=== PATIENT | female | born 1955 | race Caucasian/White ===

== ENCOUNTER 2024-05-30 08:37 | Outpatient (RCR) | payer MEDICARE, BC, SELFPAY | END 2024-09-27 23:59 | disposition home or self-care (01) | PROVIDERS: PCP Family Medicine; Visit Provider Orthopaedic Surgery | DX: M17.12 Unilateral primary osteoarthritis, left knee (principal); Z96.652 Presence of left artificial knee joint; Z51.89 Encounter for other specified aftercare | CPT/HCPCS: 97110; 97161 ==

== ENCOUNTER 2024-06-02 06:08 | Day surgery (SDC) | payer MEDICARE, BC, SELFPAY ==
[2024-06-02] VITALS (23 sets, daily range): BP systolic 70–135; BP diastolic 49–92; PULSE 61–94; RESP 16; TEMP 36.4–36.8; O2SAT 88–100; BMI 25.8
[2024-06-02] MEDS: ACETAMINOPHEN 500 MG TABLET 1000 MG PO (06:25)
[2024-06-02] MEDS: OXYCODONE (CR) 10 MG TAB.ER.12H PO (06:25)
[2024-06-02] MEDS: CELECOXIB 200 MG CAPSULE PO (06:25)
[2024-06-02] MEDS: SODIUM CHLORIDE 0.9 % (FLUSH) 10 ML SYRINGE IVF (06:42)
[2024-06-02] MEDS: MIDAZOLAM HCL 1 MG/ML inj IVP (07:18)
[2024-06-02] MEDS: fentaNYL 100 MCG/2 ML inj IVP (07:18)
[2024-06-02] MEDS: 0.9 % SODIUM CHLORIDE 500 ML 500 ML 100 ML IV ×4 (07:28→10:38)
[2024-06-02] MEDS: CEFAZOLIN 2 GM INJ IVP (07:48)
[2024-06-02] MEDS: TRANEXAMIC ACID 100 MG/ML INJ 1000 MG IV (07:48)
--- NOTE | 2024-06-02 08:13 | P.NB_ITS ---
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 Images saved: Yes Medications given in 5ml increments after negative aspiration: Marcaine %: 0.25 mL: 15 Needle gauge: 20 Precedex (mcg): 25 Patient tolerated procedure well: Yes Block Charges Block Charge (with Pro Fee): Femoral Nerve Use of Ultrasound Machine for Block: Yes- US Guidance/pain block
--- NOTE | 2024-06-02 08:13 | P.NB_ITS ---
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 Images saved: Yes Medications given in 5ml increments after negative aspiration: Marcaine %: 0.25 mL: 9 Needle gauge: 25 Patient tolerated procedure well: Yes Block Charges Block Charge (with Pro Fee): Genicular Nerve Block
--- NOTE | 2024-06-02 08:13 | W.ANESCHARGE ---
Anesthesia Charges Start Date/Time Anesthesia Start Date: 06/02/24 Anesthesia Start Time: 07:26 Stop Date/Time Anesthesia Stop Date: 06/02/24 Anesthesia Stop Time: 09:15 Summary Extremes of Age - Over 70 or under 1: MDA
--- NOTE | 2024-06-02 08:44 | CRLHL7_ITS ---
For Patients: As a result of the Cures Act, medical imaging exams and procedure reports are released immediately into your electronic medical record. You may view this report before your referring provider. If you have questions, please contact your health care provider. Indication: Post left TKA Technique: Two views left knee Findings/Impression: Hardware from a left total knee arthroplasty is in satisfactory position. Bone alignment is normal. No sign of acute fracture. Postop changes are within normal limits. Dictated by Adrian Luther MD @ 06/02/2024 10:25:41 AM (Electronically Signed)
--- NOTE | 2024-06-02 08:46 | P.ORPRC_ITS ---
Procedure Note Date of procedure: 06/02/24 Procedure: PREOPERATIVE DIAGNOSIS: Left knee osteoarthritis POSTOPERATIVE DIAGNOSIS: Left knee osteoarthritis NAME OF OPERATION: Left total knee arthroplasty SURGEON: Jonny Bradley MD CAR HOPPER: SUSAN Louie ANESTHESIA: Spinal ESTIMATED BLOOD LOSS: 0 mL COMPLICATIONS: None SPECIMENS: None DRAINS: None PREOPERATIVE ANTIBIOTICS: Ancef 1 g IMPLANTS: 1. J&J Attune # 5 posterior stabilized femur 2. # 5 fixed-bearing tibia 3. # 5 posterior stabilized, 8 mm fixed-bearing polyethylene 4. 38 patella INDICATIONS: The patient is a 69-year-old with a longstanding history of severe, unrelenting left knee pain secondary to end-stage (grade IV) left knee osteoarthritis. Despite appropriate nonoperative management, including activity modification, anti-inflammatories, [id number] pain medication, bracing, physical therapy, and injections they continue to have pain and disability. Operative intervention was offered. The risks, benefits and expected outcomes were discussed in detail. These included but were not limited to: Infection, bleeding, injury to blood vessel or nerve, venous thromboembolism. All questions were answered to their satisfaction. Use of an car rental sales assistant was necessary throughout the case for patient positioning and safety, soft tissue retraction, and closure. PROCEDURE: Spinal anesthesia was administered. The patient was placed supine on the operating table. The car rental sales assistant made sure the patient was positioned appropriately. The lower extremity was prepped and draped in the usual sterile fashion. The limb was exsanguinated with the Ajay bandage. The pneumatic tourniquet was inflated to 300 mmHg. A standard anterior incision was made with the knee in flexion. Subcutaneous dissection was sharply taken through fascial layer #1. Full-thickness medial and lateral flaps were elevated. The car rental sales assistant retracted the soft tissues and protected them throughout the case. A standard subvastus approach was made. The patella was subluxed. The infrapatellar fat pad was debrided. The menisci and cruciate ligaments were sharply d?brided. Marginal osteophytes were d?brided with the rongeur. The drill was used to penetrate the femoral canal. The canal was aspirated and irrigated with pulse lavage. The intramedullary femoral guide was placed for a 5-degree valgus cut, removing 10 mm off the distal femur. The saw was used to make the cut. Whitesides line and the trans epicondylar axis were marked. The femoral sizing guide was pinned onto the distal femur. Three degrees of external rotation nicely parallels the transepicondylar axis. Pins were placed for posterior referencing. The four-in-one cutting guide was pinned onto the distal femur. The anterior, posterior, and chamfer cuts were made. The car rental sales assistant protected the collateral ligaments. The box cutting guide was pinned. The box cuts were made. The boxed trial was placed and was an excellent fit. Drill holes for the lugs were made. Attention was then turned to the proximal tibia. The extramedullary tibial guide was placed for a neutral varus/valgus cut with 5 degrees of posterior slope, removing 0 mm based off the medial tibial surface. The car rental sales assistant protected the collateral ligaments and the neurovascular bundle. The saw was used to make the cut. Trial components were placed. The knee was nicely balanced in both flexion and extension. The trial components were removed. The tray was placed in appropriate rotation, parallel to our tibial cutting pins. It was pinned by the car rental sales assistant and the drill and the punch were used. The tray was removed. The punch was used again. We placed a bone plug in the femoral canal. Attention was then turned to the patella. [place] patellar thickness was 23.5 mm. The lobster claw resection guide was used with the 9.5 mm ko. The saw was used to make the cut. Drill holes were made by the car rental sales assistant. The trial was placed and was an excellent fit. Cancellous surfaces were irrigated with pulse lavage and thoroughly dried by the car rental sales assistant. We cemented the tibial component, then the femoral component. We impacted the 8 mm polyethylene onto the tibial tray. The knee was brought into full extension. We then cemented the patellar component. Excessive cement was removed. The cement was allowed to harden. The knee was taken through a range of motion and was found to be nicely balanced in both flexion and extension. The patella tracks centrally. The car rental sales assistant did a three minute dilute Betadine solution soak. The car rental sales assistant irrigated the wound with 3 liters of normal saline via pulse lavage. The car rental sales assistant reapproximated the extensor mechanism with #1 Vicryl in an interrupted dbyeit-lv-mejom fashion. The car rental sales assistant then ran the extensor mechanism with a #1 PDO Stratafix. The car rental sales assistant closed the subcutaneous tissues with a 3-0 Stratafix and the skin with a running 3-0 Stratafix in a subcuticular fashion. Glue was used to seal the skin. The car rental sales assistant placed a dry dressing. Sponge and needle counts were correct x2. The patient tolerated the procedure well. There were no apparent complications. They were carefully transferred to the hospital bed and taken to the postanesthesia care unit in satisfactory condition. PLAN: The patient will be mobilized with physical therapy. Aspirin will be used for DVT prophylaxis. They will be discharged to home once medically appropriate.
--- NOTE | 2024-06-02 09:17 | W.ANESCHARGE ---
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
[2024-06-02] MEDS: PHENYLEPHRINE 100 MCG/ML SYRINGE IVP (09:35)
--- NOTE | 2024-06-02 09:39 | SUR.PHASEI ---
Patient arrived in PACU sleepy, arousable, no complaints of pain or nausea. Blood pressures low, monitored more frequently. MOBILITY MANAGER instructed me to give some medication to support BP.
--- NOTE | 2024-06-02 09:54 | SUR.PHASEI ---
Patient awake and taking ice chips, blood pressure stable at 97/68. Patient meets discharge criteria from PACU
== END 2024-06-02 13:35 | disposition home or self-care (01) ==
LOC: OR 06:09
PROVIDERS: PCP Family Medicine; Visit Provider Orthopaedic Surgery
PROC: (CPT 27447; principal; 2024-06-02 07:15)
DX: M17.12 Unilateral primary osteoarthritis, left knee (principal); G89.18 Other acute postprocedural pain; E78.2 Mixed hyperlipidemia; J45.30 Mild persistent asthma, uncomplicated; E55.9 Vitamin D deficiency, unspecified; M79.7 Fibromyalgia; I77.810 Thoracic aortic ectasia
CPT/HCPCS: 27447; 01402; 64447; 64454; 73560; 76942; 97110; 97116; 97161; 99100; A9270; C1776; J0665; J0690; J1100; J2250; J2371; J2405; J2704; J3010; J7030